=== PATIENT | female | born 1945 | race African-American/Black ===

== ENCOUNTER 2019-01-11 00:18 | Emergency (ER) | payer OTHER ==
[~2019-01-11] VITALS: Ht 165.1 cm; Wt 99.8 kg
[~2019-01-11 00:18] MED LIST: CENTRUM SILVER1 EAC2 PO; COQ-10100 MG PO; FISH OIL 1,001000 M2 PO; GRAPE SEED25 MG; RESVERATROL50 MG; TUMERIC; TUMS PO; VITAMIN D1000 UNI1 PO
[2019-01-11 00:24] VITALS: BP 172/64
== END 2019-01-11 00:41 | disposition home or self-care (01) ==
LOC: M.ERS 00:18
DX: S01.301A Unspecified open wound of right ear, initial encounter (principal); Z90.710 Acquired absence of both cervix and uterus; Z90.721 Acquired absence of ovaries, unilateral; Z88.5 Allergy status to narcotic agent; W26.8XXA Contact with other sharp object(s), not elsewhere classified, initial encounter; Y93.89 Activity, other specified; Y92.89 Other specified places as the place of occurrence of the external cause; Y99.8 Other external cause status